=== PATIENT | male | born 1935 | race Caucasian/White ===

== ENCOUNTER 2020-09-29 14:29 | Emergency (ER) | payer MEDICARE ==
[2020-09-29 15:45] LABS: HEMOGLOBIN 9.7 gm/dl (14.0-17.5); RED BLOOD COUNT 3.28 M/UL (4.20-5.50); WHITE BLOOD COUNT 10.8 K/UL (4.5-11.0)
[2020-09-29 16:08] LABS: BUN/CREATININE RATIO 24 (0-10)
== END 2020-09-29 22:00 | disposition home or self-care (01) ==
LOC: ER1 14:29
PROVIDERS: Physician Assistant
DX: R06.02 Shortness of breath (principal); R00.1 Bradycardia, unspecified; R07.9 Chest pain, unspecified; I51.7 Cardiomegaly; I28.1 Aneurysm of pulmonary artery; I25.10 Atherosclerotic heart disease of native coronary artery without angina pectoris; C95.90 Leukemia, unspecified not having achieved remission; F03.90 Unspecified dementia, unspecified severity, without behavioral disturbance, psychotic disturbance, mood disturbance, and anxiety; Z95.0 Presence of cardiac pacemaker; Z95.1 Presence of aortocoronary bypass graft; Z79.899 Other long term (current) drug therapy
CPT/HCPCS: 80053; 82550; 82553; 83874; 84484; 85025; 93005; 99285; J7040; Q9967

== ENCOUNTER → 2020-11-12 | Outpatient (CLI) | payer MEDICARE ==
[~2020-11-12] MED LIST: BUSPIRONE HCL10 MG PO; CEFEPIME HCL2 GM INJ; COREG3.125 MG PO; COSOPT EYE DROP10 ML EYEBOTH; ELIQUIS2.5 MG PO; FIBER625 MG PO; IMODIUM CAP 2 MG2 MG PO; ISOSORBIDE MONO30 MG PO; KEPPRA500 MG PO; LACTINEX TABLET1 EA PO; LATANOPROST 0.7.5 ML EYEBOTH; MAXIMUM DAILY1 EAC1 PO; PRAVASTATIN SOD20 MG PO; SERTRALINE HCL25 MG PO; TASIGNA150 MG PO; TOPROL XL25 MG PO; TYLENOL325 MG PO; VANCOMYCIN750 MG/151 IV; VITAMIN C 500500 MG PO; VITAMIN D325 MCG PO
== END ==
LOC: WCC 13:20
PROC: 0KB70ZZ Excision of Right Upper Arm Muscle, Open Approach (ICD-10-PCS; principal; 2020-11-12)
DX: T81.31XA Disruption of external operation (surgical) wound, not elsewhere classified, initial encounter (principal); I96 Gangrene, not elsewhere classified; F03.91 Unspecified dementia, unspecified severity, with behavioral disturbance; C92.10 Chronic myeloid leukemia, BCR/ABL-positive, not having achieved remission; R41.841 Cognitive communication deficit; N18.30 Chronic kidney disease, stage 3 unspecified; Z95.0 Presence of cardiac pacemaker; Z86.73 Personal history of transient ischemic attack (TIA), and cerebral infarction without residual deficits; Z91.81 History of falling; Z88.5 Allergy status to narcotic agent; Z88.8 Allergy status to other drugs, medicaments and biological substances; Z79.01 Long term (current) use of anticoagulants; Z79.899 Other long term (current) drug therapy; Y83.8 Other surgical procedures as the cause of abnormal reaction of the patient, or of later complication, without mention of misadventure at the time of the procedure
CPT/HCPCS: 87070; 87077; 87186; 87205; G0463

== ENCOUNTER → 2020-11-19 | Outpatient (CLI) | payer MEDICARE | LOC: RAD 15:04 | DX: T81.31XA Disruption of external operation (surgical) wound, not elsewhere classified, initial encounter (principal); S42.401A Unspecified fracture of lower end of right humerus, initial encounter for closed fracture; F03.91 Unspecified dementia, unspecified severity, with behavioral disturbance; C92.10 Chronic myeloid leukemia, BCR/ABL-positive, not having achieved remission; R41.841 Cognitive communication deficit; N18.30 Chronic kidney disease, stage 3 unspecified; Z95.0 Presence of cardiac pacemaker; Z86.73 Personal history of transient ischemic attack (TIA), and cerebral infarction without residual deficits; Z91.81 History of falling; Z98.890 Other specified postprocedural states; X58.XXXA Exposure to other specified factors, initial encounter | CPT/HCPCS: 73080 ==

== ENCOUNTER → 2020-11-19 | Outpatient (CLI) | payer MEDICARE | LOC: WCC 13:19 | PROC: 0KB70ZZ Excision of Right Upper Arm Muscle, Open Approach (ICD-10-PCS; principal; 2020-11-19) | DX: T81.31XA Disruption of external operation (surgical) wound, not elsewhere classified, initial encounter (principal); I96 Gangrene, not elsewhere classified; B96.5 Pseudomonas (aeruginosa) (mallei) (pseudomallei) as the cause of diseases classified elsewhere; F03.91 Unspecified dementia, unspecified severity, with behavioral disturbance; C92.10 Chronic myeloid leukemia, BCR/ABL-positive, not having achieved remission; R41.841 Cognitive communication deficit; N18.30 Chronic kidney disease, stage 3 unspecified; Z95.0 Presence of cardiac pacemaker; Z86.73 Personal history of transient ischemic attack (TIA), and cerebral infarction without residual deficits; Z91.81 History of falling; Z79.01 Long term (current) use of anticoagulants; Z79.899 Other long term (current) drug therapy; Y83.8 Other surgical procedures as the cause of abnormal reaction of the patient, or of later complication, without mention of misadventure at the time of the procedure; Z88.5 Allergy status to narcotic agent; Z88.8 Allergy status to other drugs, medicaments and biological substances ==

== ENCOUNTER 2020-12-10 11:27 | Inpatient (IN) | payer MEDICARE, OTHER ==
[~2020-12-10] VITALS: Ht 157.5 cm; Wt 46.7 kg
[2020-12-10] MEDS ORDERED: KEPPRA500 MG PO (14:24)
[2020-12-10] MEDS ORDERED: ELIQUIS2.5 MG PO (14:24)
[2020-12-10] MEDS ORDERED: PRAVASTATIN SOD20 MG PO (14:25)
[2020-12-10] MEDS ORDERED: SERTRALINE HCL25 MG PO (14:25)
[2020-12-10] MEDS ORDERED: TOPROL XL25 MG PO (14:25)
[2020-12-10] MEDS ORDERED: TASIGNA150 MG PO (14:26)
[2020-12-10] MEDS ORDERED: COREG3.125 MG PO (14:27)
[2020-12-10] MEDS ORDERED: BUSPIRONE HCL10 MG PO (14:27)
[2020-12-10] MEDS ORDERED: ISOSORBIDE MONO30 MG PO (14:28)
[2020-12-10] MEDS ORDERED: COSOPT EYE DROP10 ML EYEBOTH (14:29)
[2020-12-10] MEDS ORDERED: LATANOPROST 0.7.5 ML EYEBOTH (14:29)
[2020-12-10 14:45] LABS: HEMOGLOBIN 9.8 gm/dl (14.0-17.5); RED BLOOD COUNT 3.14 M/UL (4.20-5.50); WHITE BLOOD COUNT 8.8 K/UL (4.5-11.0)
[2020-12-10] MEDS ORDERED: VITAMIN C 500500 MG PO (14:46)
[2020-12-10] MEDS ORDERED: VITAMIN D325 MCG PO (14:46)
[2020-12-10] MEDS ORDERED: TYLENOL325 MG PO (14:47)
[2020-12-10] MEDS ORDERED: IMODIUM CAP 2 MG2 MG PO (14:47)
[2020-12-10] MEDS ORDERED: LACTINEX TABLET1 EA PO (14:48)
[2020-12-10] MEDS ORDERED: MAXIMUM DAILY1 EAC1 PO (14:48)
[2020-12-10] MEDS ORDERED: FIBER625 MG PO (14:49)
[2020-12-10] MEDS ORDERED: CEFEPIME HCL2 GM INJ (14:49)
[2020-12-10] MEDS ORDERED: VANCOMYCIN750 MG/151 IV (14:50)
[2020-12-11 04:15] LABS: HEMOGLOBIN 8.7 gm/dl (14.0-17.5); WHITE BLOOD COUNT 8.3 K/UL (4.5-11.0)
[2020-12-11 04:18] LABS: RED BLOOD COUNT 2.82 M/UL (4.20-5.50)
[2020-12-12 05:04] LABS: HEMOGLOBIN 9.3 gm/dl (14.0-17.5); RED BLOOD COUNT 2.94 M/UL (4.20-5.50); WHITE BLOOD COUNT 8.1 K/UL (4.5-11.0)
[2020-12-13 04:49] LABS: HEMOGLOBIN 9.4 gm/dl (14.0-17.5); RED BLOOD COUNT 3.01 M/UL (4.20-5.50); WHITE BLOOD COUNT 8.2 K/UL (4.5-11.0)
[2020-12-14 04:30] LABS: HEMOGLOBIN 8.4 gm/dl (14.0-17.5); RED BLOOD COUNT 2.71 M/UL (4.20-5.50); WHITE BLOOD COUNT 9.2 K/UL (4.5-11.0)
--- NOTE | 2020-12-14 10:25 | NUR ---
CALLED DR. MALDONADO WITH CRITICAL LAB VALUE OF 10 FOR PATIENTS CO2
[2020-12-15 05:12] LABS: HEMOGLOBIN 7.9 gm/dl (14.0-17.5); RED BLOOD COUNT 2.52 M/UL (4.20-5.50); WHITE BLOOD COUNT 8.5 K/UL (4.5-11.0)
--- NOTE | 2020-12-15 19:02 | NUR ---
INFORMED PATIENT HAD 11 BEAT RUN OF VTACH. PROVIDER CALLED AND ORDERS FOR BMP AND MAGNESIUM LEVEL LABS ORDERED.
[2020-12-18 05:40] LABS: HEMOGLOBIN 7.7 gm/dl (14.0-17.5); RED BLOOD COUNT 2.53 M/UL (4.20-5.50)
[2020-12-19 03:40] LABS: HEMOGLOBIN 7.8 gm/dl (14.0-17.5); RED BLOOD COUNT 2.45 M/UL (4.20-5.50); WHITE BLOOD COUNT 12.5 K/UL (4.5-11.0)
[2020-12-20 11:57] LABS: HEMOGLOBIN 7.6 gm/dl (14.0-17.5); RED BLOOD COUNT 2.39 M/UL (4.20-5.50); WHITE BLOOD COUNT 13.7 K/UL (4.5-11.0)
[2020-12-21 02:59] LABS: HEMOGLOBIN 7.1 gm/dl (14.0-17.5); RED BLOOD COUNT 2.27 M/UL (4.20-5.50); WHITE BLOOD COUNT 13.1 K/UL (4.5-11.0)
--- NOTE | 2020-12-22 19:20 | NUR ---
[facility] NURSE TERESA CAME TO SEE PT TODAY , SHE STAYED SEVERAL HRS WITH HIM, PAPERS ON THE CHART WHERE FAMILY WANTS HIM TO BE COMFORT CARE , DCD HIS DOBHOFF ORDERED ALSO., CALL HOSPICE CARE IF NEEDED FOR ANYTHING SHE STATED RUY WOULD BE IT INFRASTRUCTURE SPECIALIST MAXIMO
--- NOTE | 2020-12-26 12:04 | NUR ---
CALLED AND SPOKE WITH JACOBO NUNEZ DAUGHTER VICKY. INFORMED HER THAT HER FATHER WAS NOT DOING WELL THIS MORNING. I TOLD HER THAT HIS O2 SAT WAS IN THE 60'S AND SBP 59. I TOLD HER THAT I DIDN'T KNOW IF HE WOULD MAKE IT THROUGH THE DAY. I TOLD HER THAT IF ANY FAMILY COULD COME THEY NEEDED TO. SHE STATED THAT SHE AND HER SISTER NEITHER ONE COULD COME. I TOLD HER THAT I WOULD CALL HER BACK WITH ANY CHANGES. JACOBO STATED THAT [facility] IS THE FRUNERAL HOME THAT WOULD POULTRY BONER HER FATHER.
--- NOTE | 2020-12-26 12:13 | NUR ---
1056 CALLED AND NOTIFIED JACOBO GURROLA THAT HER FATHER HAD PASSED. I TOLD HER THAT HE WAS NOT ALONE AND THAT I WAS WITH HIM AND HELD HIS HAND UNTIL HE PASSED. IT WAS PEACFULL AND HE DID NOT SUFFER
--- NOTE | 2020-12-26 12:15 | NUR ---
1056 CALLED AND NOTIFIED [facility] NURSE. SHE STATED THAT SHE WOULD CONTACT [facility] TO COME AND RITUAL CIRCUMCISER THE PT
--- NOTE | 2020-12-26 12:20 | NUR ---
1050 CALLED [facility] AND INFORMED THEM OF PT'S PASSING AND THEY STATED THAT HE WAS RULED OUT
--- NOTE | 2020-12-26 12:25 | NUR ---
1048 TELEMETRY CALLED PT O2 SAT READING 6%. WENT INTO PT'S ROOM. PT WAS AGONAL BREATHING. I SAT WITH PT AND HELD HIS HAND TILL HE PASSES. STAR AND NIKOLAS RN AUSCULTATED NO BREATH SOUNDS OR HR AND NO CORNEAL REFLEXES. .
== END 2020-12-26 10:48 | disposition expired | DRG 682 ==
LOC: MED SURG 4 13:21
PROVIDERS: Family Medicine; Internal Medicine; Internal Medicine Nephrology; Physician Assistant Medical; ADMIT Internal Medicine
DX: N17.0 Acute kidney failure with tubular necrosis (principal); G93.41 Metabolic encephalopathy; E43 Unspecified severe protein-calorie malnutrition; I13.0 Hypertensive heart and chronic kidney disease with heart failure and stage 1 through stage 4 chronic kidney disease, or unspecified chronic kidney disease; I50.22 Chronic systolic (congestive) heart failure; E87.2 Acidosis; E87.0 Hyperosmolality and hypernatremia; J96.11 Chronic respiratory failure with hypoxia; M00.821 Arthritis due to other bacteria, right elbow; J98.11 Atelectasis; Z68.1 Body mass index [BMI] 19.9 or less, adult; R64 Cachexia; N18.30 Chronic kidney disease, stage 3 unspecified; E86.0 Dehydration; Z85.6 Personal history of leukemia; I25.5 Ischemic cardiomyopathy; F41.9 Anxiety disorder, unspecified; I25.10 Atherosclerotic heart disease of native coronary artery without angina pectoris; I73.9 Peripheral vascular disease, unspecified; R13.10 Dysphagia, unspecified; F03.90 Unspecified dementia, unspecified severity, without behavioral disturbance, psychotic disturbance, mood disturbance, and anxiety; R77.8 Other specified abnormalities of plasma proteins; L89.312 Pressure ulcer of right buttock, stage 2; E87.6 Hypokalemia; E86.1 Hypovolemia; E83.42 Hypomagnesemia; G40.909 Epilepsy, unspecified, not intractable, without status epilepticus; B96.5 Pseudomonas (aeruginosa) (mallei) (pseudomallei) as the cause of diseases classified elsewhere; Z51.5 Encounter for palliative care; Z90.49 Acquired absence of other specified parts of digestive tract; Z98.84 Bariatric surgery status; Z95.0 Presence of cardiac pacemaker; Z82.3 Family history of stroke; Z88.5 Allergy status to narcotic agent; Z88.8 Allergy status to other drugs, medicaments and biological substances; Z86.16 Personal history of COVID-19; Z95.1 Presence of aortocoronary bypass graft; Z91.041 Radiographic dye allergy status; Z79.01 Long term (current) use of anticoagulants; Z79.899 Other long term (current) drug therapy; Z87.891 Personal history of nicotine dependence
CPT/HCPCS: 36415; 74018; 80048; 80053; 80202; 81001; 82550; 82553; 82570; 82962; 83036; 83735; 84132; 84156; 84443; 84484; 85025; 85027; 87040; 92526; 92610; 93005; 94640; 94664; 94760; A6212; J0692; J1650; J1953; J2060; J2270; J3370; J3475; J3480; J7030; J7070; P9047